=== PATIENT | male | born 1975 | race Caucasian/White ===

== ENCOUNTER 2017-08-29 08:00 | Outpatient (CLI) | payer MEDICAID ==
[2017-08-29 12:56] LABS: BASOPHILS % (AUTO) 0.3 %; EOSINOPHILS # (AUTO) 0.8 10^3/uL (0.0-0.7); HCT - HEMATOCRIT 45.8 % (42.0-52.0); HGB - HEMOGLOBIN 15.6 g/dL (14.0-18.0); LYMPHOCYTES # (AUTO) 2.5 10^3/uL (1.5-3.5); LYMPHOCYTES % (AUTO) 29.5 %; MEAN CORPUSCULAR HEMOGLOBIN 30.7 pg (27.0-31.0); MEAN CORPUSCULAR HGB CONC 34.2 g/dL (32.0-36.0); MEAN CORPUSCULAR VOLUME 89.9 fL (80.0-94.0); MONOCYTES # (AUTO) 0.5 10^3/uL (0.0-1.0); MONOCYTES % (AUTO) 5.8 %; NEUTROPHILS # (AUTO) 4.8 10^3/uL (1.5-6.6); NEUTROPHILS % (AUTO) 55.4 %; RED CELL DISTRIBUTION WIDTH 13.8 % (12.0-15.0); UNCORRECTED WHITE BLOOD COUNT 8.6 x10^3/uL; WHITE BLOOD COUNT 8.6 x10^3/uL (4.8-10.8)
[2017-08-29 13:11] LABS: ALBUMIN/GLOBULIN RATIO 1.4 (1.0-2.2); BILIRUBIN,TOTAL 1.1 mg/dL (0.2-1.0); BUN - BLOOD UREA NITROGEN 9 mg/dL (6-20); CALCIUM 9.4 mg/dL (8.5-10.3); CARBON DIOXIDE - CO2 26 mmol/L (21-32); CHLORIDE 106 mmol/L (101-111); CHOL/HDL RATIO 3.4 (<5.0); CHOLESTEROL 168 mg/dL; CREATININE 0.7 mg/dL (0.6-1.2); GFR - MDRD 125 (>89); GLUCOSE 86 mg/dL (70-100); HDL CHOLESTEROL 49 mg/dL; LDL/HDL RATIO 2.1 (<3.6); POTASSIUM 4.5 mmol/L (3.5-5.0); SODIUM 138 mmol/L (135-145); TOTAL PROTEIN 7.5 g/dL (6.7-8.2); TRIGLYCERIDES 70 mg/dL; VLDL CHOLESTEROL 14 mg/dL
== END 2017-08-29 08:01 | disposition home or self-care (01) ==
LOC: LAB.N 08:00
PROVIDERS: ATTEND Physician Assistant Medical
DX: Z82.49 Family history of ischemic heart disease and other diseases of the circulatory system (principal); Z81.1 Family history of alcohol abuse and dependence; Z83.3 Family history of diabetes mellitus; J30.2 Other seasonal allergic rhinitis
CPT/HCPCS: 36415; 80053; 80061; 85025

== ENCOUNTER 2018-10-14 05:14 | Emergency (ER) | payer MEDICAID ==
--- NOTE | 2018-10-14 05:49 | ED Physician Documentation ---
PD HPI DYSPNEA - Stated complaint Stated Complaint: SHORTNESS OF BREATH - Chief complaint Chief Complaint: Resp - History obtained from History obtained from: Patient - History of Present Illness Timing - onset: How many days ago (2) Timing - details: Gradual onset Pain level now: 0 Associated symptoms: Cough. No: Fever, Chest pain / discomfort Recently seen: Not recently seen - Additional information Additional information: c/o 2 days of sinus congestion, cough, wheezing, generalized headache, dyspnea Review of Systems Constitutional: reports: Reviewed and negative Ears: reports: Ear pain Nose: reports: Rhinorrhea / runny nose, Congestion, Sinus pressure / pain Throat: reports: Sore throat Cardiac: reports: Reviewed and negative Respiratory: reports: Dyspnea, Cough, Wheezing PD PAST MEDICAL HISTORY - Past Medical History Past Medical History: Yes Respiratory: Asthma - Past Surgical History Past Surgical History: Yes HEENT: Tonsil/Adenoidectomy - Present Medications Home Medications: Ambulatory Orders Medication Instructions Recorded Confirmed Albuterol Sulfate [Ventolin Hfa] 2 puffs IH QID PRN #1 hfa.aer.ad 06/06/16 10/14/18 Amox/Clav 875/125 [Augmentin] 1 each PO Q12H #13 tablet 10/14/18 predniSONE [Prednisone] 40 mg PO DAILY 3 Days #6 tablet 10/14/18 - Allergies Allergies/Adverse Reactions: Allergies Allergy/AdvReac Type Severity Reaction Status Date / Time iodine Allergy Rash Verified 10/14/18 05:23 - Social History Does the pt smoke?: Yes Smoking Status: Current every day smoker Does the pt drink ETOH?: Yes Does the pt have substance abuse?: Yes - Immunizations Immunizations are current?: Yes - POLST Patient has POLST: No PD ED PE NORMAL - Vitals Vital signs reviewed: Yes - General General: Alert and oriented X 3, No acute distress, Well developed/nourished - HEENT HEENT: Pharynx benign, Other (right TM central erythema) - Neck Neck: Supple, no meningeal sign - Respiratory Respiratory: No respiratory distress, Clear bilaterally Results - Vitals Vitals: Vital Signs - 24 hr 10/14/18 10/14/18 10/14/18 05:21 05:47 06:15 Temperature 37.4 C Heart Rate 86 77 77 Respiratory 18 15 16 Rate Blood Pressure 119/71 117/78 111/74 O2 Saturation 98 97 97 10/14/18 06:36 Temperature 36.5 C Heart Rate 83 Respiratory 16 Rate Blood Pressure 108/74 O2 Saturation 98 Oxygen O2 Source Room air PD MEDICAL DECISION MAKING - ED course Complexity details: considered differential, d/w patient Departure - Departure Disposition: 01 Home, Self Care Clinical Impression: Sinusitis, Otitis media, Asthma Condition: Good Instructions: ED Reactive Airway Disease, ED Otitis Media Acute Adult, ED Sinusitis Abx Tx Follow-Up: Matteo Chaparro PA-C [Primary Care Provider] - (3-5 days if not improving) Prescriptions: Amox/Clav 875/125 [Augmentin] 1 each PO Q12H #13 tablet predniSONE [Prednisone] 40 mg PO DAILY 3 Days #6 tablet Forms: Activity restrictions Discharge Date/Time: 10/14/18 06:39
[2018-10-14] MEDS ORDERED: predniSONE 20 MG TABLET PO STA (06:30)
[2018-10-14] MEDS ORDERED: AMOX/CLAV 875 MG/125 MG TABLET PO STA (06:30)
[2018-10-14 06:38] VITALS: BP 108/74
== END 2018-10-14 06:39 | disposition home or self-care (01) ==
LOC: ED 05:14
DX: J32.9 Chronic sinusitis, unspecified (principal); H66.90 Otitis media, unspecified, unspecified ear; J45.909 Unspecified asthma, uncomplicated; F17.200 Nicotine dependence, unspecified, uncomplicated
CPT/HCPCS: 99283; A9270; J7512

== ENCOUNTER 2020-12-03 05:21 | Emergency (ER) | payer MEDICAID ==
[2020-12-03] MEDS ORDERED: NEOMYCIN/POLYMYX/HC OTIC DROPS LEFTEAR STA (05:51)
--- NOTE | 2020-12-03 05:54 | ED Physician Documentation ---
PD HPI HEENT - Stated complaint Stated Complaint: R EAR PX - Chief complaint Chief Complaint: Heent - History obtained from History obtained from: Patient - History of Present Illness Timing - onset: How many days ago (2) Timing - duration: Days (2) Timing - details: Gradual onset, Still present Location: Left ear Improves: Medication Associated symptoms: No: Fever, Congestion, Rhinorrhea, Trismus, Unable to swallow, Swollen nodes, Facial swelling, Headache, Cough Similar symptoms before: Diagnosis (OM) Recently seen: Not recently seen - Additional information Additional information: 45-year-old male reports that over the past 2 days he has developed some pain in his right ear again and he went to put a Q-tip in it this evening and got pus and blood. He has come now to the emergency department with pain to the right ear is painful to to the touch and he has not had fever and he has not had a change in his usual smoker's cough. He denies any sore throat or nasal congestion. He indicates that since this infection that he had 1 year ago he has had 4 other times where he has had pain in his ear and this is resolved spontaneously over period of time. Review of Systems Constitutional: denies: Fever Eyes: denies: Decreased vision Ears: reports: Loss of hearing, Ear pain, Drainage/discharge Nose: denies: Rhinorrhea / runny nose, Congestion Throat: denies: Sore throat Cardiac: denies: Chest pain / pressure, Palpitations Respiratory: denies: Dyspnea, Cough GI: denies: Abdominal Pain, Nausea, Vomiting : denies: Dysuria PD PAST MEDICAL HISTORY - Past Medical History Past Medical History: Yes Cardiovascular: None Respiratory: Asthma Neuro: None Endocrine/Autoimmune: None GI: None : None HEENT: None Psych: None Musculoskeletal: None Derm: None - Past Surgical History Past Surgical History: Yes HEENT: Tonsil/Adenoidectomy - Present Medications Home Medications: Ambulatory Orders Medication Instructions Recorded Confirmed Albuterol Sulfate [Ventolin Hfa] 2 puffs IH QID PRN #1 hfa.aer.ad 06/06/16 12/03/20 Neomycin/Polymyx/Hc Otic Drops 4 drops LEFTEAR BID #10 ml 12/03/20 [Cortisporin Ear Susp] - Allergies Allergies/Adverse Reactions: Allergies Allergy/AdvReac Type Severity Reaction Status Date / Time iodine Allergy Rash Verified 10/14/18 05:23 - Social History Does the pt smoke?: Yes Smoking Status: Current every day smoker Does the pt drink ETOH?: Yes Does the pt have substance abuse?: Yes - Immunizations Immunizations are current?: Yes - POLST Patient has POLST: No PD ED PE NORMAL - Vitals Vital signs reviewed: Yes (Normal) - General General: Alert and oriented X 3, No acute distress - HEENT HEENT: Atraumatic, PERRL, EOMI, Other (The right ear is tender to push on the pinna and to pull on the tragus. There is erythema to the canal especially to the inferior portion of the canal along with some swelling. There is debris in the canal. The TM is erythematous centrally. The left TM is minimally erythematous in that attic. 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, No motor deficit, No sensory deficit, Normal speech Eye Opening: Spontaneous Motor: Obeys Commands Verbal: Oriented GCS Score: 15 - Psych Psych: Normal mood, Normal affect Results - Vitals Vitals: Vital Signs - 24 hr 12/03/20 12/03/20 05:33 05:40 Temperature 36.9 C 36.9 C Heart Rate 63 63 Respiratory 16 16 Rate Blood Pressure 118/69 118/69 O2 Saturation 97 97 Oxygen O2 Source Room air PD MEDICAL DECISION MAKING - ED course Complexity details: reviewed old records, considered differential, d/w patient ED course: 45-year-old male presents today with ear pain and appears to have otitis externa on exam. He does have some evidence of otitis media but has had prior episodes where this is resolved spontaneously and this is not treated today. He is administered Cortisporin otic drops. We will treat him for otitis externa. Departure - Departure Disposition: 01 Home, Self Care Clinical Impression: Otitis externa Qualifiers: Otitis externa type: unspecified type Chronicity: acute Laterality: right Quali fied Code(s): H60.501 - Unspecified acute noninfective otitis externa, right ear Condition: Stable Instructions: ED Otitis Externa Follow-Up: Ed[facility] [Provider Group] Prescriptions: Neomycin/Polymyx/Hc Otic Drops [Cortisporin Ear Susp] 4 drops LEFTEAR BID #10 ml
[2020-12-03 06:01] VITALS: BP 119/66
== END 2020-12-03 05:59 | disposition home or self-care (01) ==
LOC: ED 05:21
DX: H60.501 Unspecified acute noninfective otitis externa, right ear (principal); F17.200 Nicotine dependence, unspecified, uncomplicated
CPT/HCPCS: 99282; 99284; A9270

== ENCOUNTER 2021-08-26 00:19 | Emergency (ER) | payer MEDICAID ==
--- NOTE | 2021-08-26 00:45 | ED Physician Documentation ---
PD HPI HEENT - Stated complaint Stated Complaint: R EAR ACHE - Chief complaint Chief Complaint: Heent - History obtained from History obtained from: Patient - History of Present Illness Timing - onset: How many weeks ago (1) Timing - details: Gradual onset, Constant, Waxing and waning Pain level now: 8 Location: Right ear Improves: Nothing Associated symptoms: No: Fever - Additional information Additional information: c/o one week of right ear pain. Denies trauma. For the past 1-2 days, he has been using ear drops left over from a previous ear infection without improvement Review of Systems Constitutional: denies: Fever Ears: reports: Ear pain, Drainage/discharge PD PAST MEDICAL HISTORY - Past Medical History Past Medical History: Yes Cardiovascular: None Respiratory: Asthma Neuro: None Endocrine/Autoimmune: None GI: None : None HEENT: Other Psych: None Musculoskeletal: None Derm: None Other Past Medical History: chronic ear infections - Past Surgical History Past Surgical History: Yes HEENT: Tonsil/Adenoidectomy - Present Medications Home Medications: Ambulatory Orders Medication Instructions Recorded Confirmed Albuterol Sulfate [Ventolin Hfa] 2 puffs IH QID PRN #1 hfa.aer.ad 06/06/16 08/26/21 Neomycin/Polymyx/Hc Otic Drops 4 drops LEFTEAR BID #10 ml 12/03/20 08/26/21 [Cortisporin Ear Susp] - Allergies Allergies/Adverse Reactions: Allergies Allergy/AdvReac Type Severity Reaction Status Date / Time iodine Allergy Rash Verified 08/26/21 00:28 - Social History Does the pt smoke?: Yes Smoking Status: Current every day smoker Does the pt drink ETOH?: Yes Does the pt have substance abuse?: Yes - Immunizations Immunizations are current?: Yes - POLST Patient has POLST: No PD ED PE NORMAL - Vitals Vital signs reviewed: Yes - General General: Alert and oriented X 3, No acute distress, Well developed/nourished - HEENT HEENT: Moist mucous membranes - Neck Neck: Supple, no meningeal sign PD ED PE EXPANDED - HEENT HEENT: Other (normal left ear. right ear: external canal with mild erythema but severe swelling of soft tissue of external canal that completely occludes the canal . there is scant purulent d/c from the right external auditory canal) Results - Vitals Vitals: Vital Signs - 24 hr 08/26/21 02:02 Temperature 36.8 C Heart Rate 66 Respiratory 17 Rate Blood Pressure 115/71 O2 Saturation 97 Oxygen O2 Source Room air PD MEDICAL DECISION MAKING - ED course Complexity details: considered differential, d/w patient ED course: right external otitis with severe swelling the occludes the canal. A [place] ear wi ck is placed and ciprodex drops instilled with remainder of bottle given to go Departure - Departure Disposition: 01 Home, Self Care Clinical Impression: Otitis externa Condition: Good Instructions: ED Otitis Externa Follow-Up: BECKI FRANKLIN ARNP [Physician No Access] - (3-5 days) Comments: Use the antibiotic drops as follows (cipro/dex): 3-4 drops in right ear twice per day for ten days Forms: Activity restrictions Discharge Date/Time: 08/26/21 02:02
[2021-08-26] MEDS ORDERED: CIPROFLOX/DEXAMETH OTIC DROPS RIGHTEAR STA (01:48)
[2021-08-26 02:04] VITALS: BP 115/71
== END 2021-08-26 02:02 | disposition home or self-care (01) ==
LOC: ED 00:19
DX: H60.91 Unspecified otitis externa, right ear (principal); F17.200 Nicotine dependence, unspecified, uncomplicated
CPT/HCPCS: 99282; 99283; A9270; 87070; 87181; 87205

== ENCOUNTER 2021-08-26 08:00 | Outpatient (CLI) | payer MEDICAID | END 2021-08-26 23:59 | disposition home or self-care (01) | LOC: LAB.N 08:00 | PROVIDERS: ATTEND Nurse Practitioner | DX: H60.90 Unspecified otitis externa, unspecified ear (principal) | CPT/HCPCS: 87070; 87181; 87205 ==

== ENCOUNTER 2022-04-12 11:07 | Outpatient (CLI) | payer MEDICAID ==
--- NOTE | 2022-04-12 14:46 | Ultrasound Report ---
PROCEDURE: Pelvic Limited or F/U INDICATIONS: RIGHT INGUINAL HERNIA TECHNIQUE: Real-time transabdominal scanning was performed of the pelvic organs, with image documentation. COMPARISON: None. FINDINGS: There is a reducible fat-containing right femoral hernia which measures approximately 0.8-1 cm in diameter the neck. IMPRESSION: Reducible fat-containing right femoral hernia Reviewed by: Saadia Barksdale MD on 04/12/2022 2:44 PM PDT Approved by: Saadia Barksdale MD on 04/12/2022 2:44 PM PDT Station ID: [id number]
== END 2022-04-12 11:08 | disposition home or self-care (01) ==
LOC: DI 11:07
PROVIDERS: ATTEND Nurse Practitioner
DX: K41.90 Unilateral femoral hernia, without obstruction or gangrene, not specified as recurrent (principal)

== ENCOUNTER 2022-06-02 08:00 | Outpatient (CLI) | payer MEDICAID | END 2022-06-02 23:59 | disposition home or self-care (01) | LOC: LAB.N 08:00 | PROVIDERS: ATTEND Family Medicine | DX: L02.91 Cutaneous abscess, unspecified (principal) | CPT/HCPCS: 87070; 87181; 87205 ==

== ENCOUNTER 2022-06-20 08:44 | Day surgery (SDC) | payer MEDICAID ==
[2022-06-20] MEDS ORDERED: CELECOXIB 100 MG CAPSULE PO ONE (09:13)
[2022-06-20] MEDS ORDERED: ACETAMINOPHEN 500 MG TABLET PO ONE (09:13)
[2022-06-20] MEDS ORDERED: GABAPENTIN 400 MG CAPSULE ONE (09:13)
[2022-06-20] MEDS ORDERED: CEFAZOLIN 2G/50ML 0.9% NS 2 GM/50 ML BAG IV ONE (09:13)
[2022-06-20] MEDS ORDERED: LACTATED RINGERS 1,000 ML IV ONE ×2 (09:29→13:03)
--- NOTE | 2022-06-20 10:15 | ANESTHESIA ---
Pre-Anesthesia VS, & Labs - Diagnosis R inguinal hernia - Procedure R open inguinal hernia repair w mesh Vital Signs: Temp Pulse Resp BP Pulse Ox O2 Flow Rate 36.8 C 63 16 111/68 99 06/20/22 09:00 06/20/22 09:00 06/20/22 09:00 06/20/22 09:00 06/20/22 09:00 Height: 5 ft 6.75 in Weight (kg): 60.3 kg Body Mass Index: 20.9 BMI Classification: Normal - NPO Last Fluid Intake: black coffee 06 Last Food Intake: >8h - Lab Results Lab results reviewed: Yes Home Medications and Allergies Home Medications: Ambulatory Orders Albuterol 2.5 mg INH Q4H PRN 06/14/22 Ibuprofen [Motrin] 600 mg PO Q6H PRN 06/14/22 Albuterol 2.5 mg INH Q4H PRN 06/14/22 Ibuprofen [Motrin] 600 mg PO Q6H PRN 06/14/22 Allergies/Adverse Reactions: Allergies Allergy/AdvReac Type Severity Reaction Status Date / Time iodine Allergy Unknown Verified 06/14/22 11:39 Anes History & Medical History - Anesthetic History Anesthesia Complications: reports: No previous complications Family history of Anesthesia Complications: Denies Family history of Malignant Hyperthermia: Denies - Medical History Cardiovascular: reports: Arrhythmia Pulmonary: reports: Asthma Gastrointestinal: reports: None Urinary: reports: None Neuro: reports: None Musculoskeletal: reports: None Endocrine/Autoimmune: reports: None Blood Disorders: reports: None Skin: reports: Other Smoking Status: Current every day smoker Psychosocial: reports: Alcohol (social), Amphetamine (remote hx of heavy use, 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), Cannabis (daily) History of Cancer?: No - Surgical History Eyes Ears Nose Throat (EENT): reports: Tonsil/Adenoidectomy Exam General: Alert, Oriented x3, Cooperative Dental: WNL Mouth Openin Fingerbreadth Neck Mobility: Normal Mallampati classification: I Thyromental Distance: 4-6 cm Respiratory: Lungs clear, Normal breath sounds, No respiratory distress Cardiovascular: Regular rate Neurological: Normal speech Mental/Cognitive Status: Alert/Oriented X3, Normal for patient Cognitive Status: Within normal limits Plan Anesthesia Type: General Consent for Procedure(s) Verified and Reviewed: Yes Code Status: Attempt Resuscitation ASA classification: 2-Mild systemic disease Is this case an emergency?: No
[2022-06-20] MEDS ORDERED: fentaNYL 100 MCG/2 ML VIAL IVP PRN (10:16)
[2022-06-20] MEDS ORDERED: ePHEDrine 50 MG/ML VIAL IVP PRN (10:16)
[2022-06-20] MEDS ORDERED: ONDANSETRON 4 MG/2 ML VIAL IVP PRN ×2 (10:16→13:00)
[2022-06-20] MEDS ORDERED: ATROPINE ABBOJECT 1 MG/10 ML SYRINGE IVP PRN (10:16)
[2022-06-20] MEDS ORDERED: HYDROmorphone 0.5 MG/0.5 ML SYRINGE IVP PRN (10:16)
[2022-06-20] MEDS ORDERED: NALOXONE 0.4 MG/ML VIAL IVP PRN (10:16)
[2022-06-20] MEDS ORDERED: METOCLOPRAMIDE 10 MG/2 ML VIAL IVP PRN (10:16)
[2022-06-20] MEDS ORDERED: MORPHINE 2 MG/ML CARPUJECT IVP PRN (10:16)
[2022-06-20] MEDS ORDERED: LACTATED RINGERS 1,000 ML IV SCH (11:00)
[2022-06-20] MEDS ORDERED: LIDOCAINE MPF 2%-EPI 1:200000 20 ML VIAL ONE (11:05)
[2022-06-20] MEDS ORDERED: BUPIVACAINE 0.5% PF 30 ML VIAL ONE (11:05)
[2022-06-20] MEDS ORDERED: PROPOFOL 200 MG/20 ML VIAL IVP ONE (11:25)
[2022-06-20] MEDS ORDERED: MIDAZOLAM 2 MG/2 ML VIAL ONE (11:25)
[2022-06-20] MEDS ORDERED: fentaNYL 100 MCG/2 ML VIAL ONE (11:25)
[2022-06-20] MEDS ORDERED: LIDOCAINE-MPF 2% 5 ML VIAL ONE (11:25)
[2022-06-20] MEDS ORDERED: BUPIVACAINE 0.5% PF 30 ML VIAL INFIL ONE (12:25)
[2022-06-20] MEDS ORDERED: LIDOCAINE MPF 2%-EPI 1:200000 20 ML VIAL SUBQ ONE (12:26)
[2022-06-20] MEDS ORDERED: ONDANSETRON 4 MG/2 ML VIAL ONE (12:28)
[2022-06-20] MEDS ORDERED: ACETAMINOPHEN 325 MG TABLET PO PRN (13:00)
[2022-06-20] MEDS ORDERED: IBUPROFEN 600 MG TABLET PO PRN (13:00)
[2022-06-20] MEDS ORDERED: oxyCODONE 5 MG TABLET PO PRN (13:00)
--- NOTE | 2022-06-20 13:07 | OPERATIVE REPORT ---
Operative Report - General Procedure Date: 06/20/22 Planned Procedure: open inguinal hernia repair Pre-Op Diagnosis: right inguinal hernia Procedure Performed: open right inguinal hernia repair with mesh Post Op Diagnosis: right direct inguinal hernia - Procedure Note Primary Surgeon: Dr. Miryam Contreras Anesthesia Technique: General ET tube, Local, Regional block (R ilioinguinal nerve block) Estimated Blood Loss (mL): 5 Indications: The patient has had a right groin hernia for the last 1 year. It has been increasingly painful and now interferes with his activities of daily living. The patient was seen and evaluated in the clinic where we discussed the risks, benefits, and alternatives of open inguinal hernia repair with mesh. Risks include but are not limited to bleeding, infection, damage to surrounding structures, infection of the mesh requiring removal, chronic pain, and recurrence of the hernia. The patient voiced understanding, his questions were answered, and he wished to proceed with surgery. A consent was signed by the patient at that time. Findings: 1.direct inguinal hernia 2.PHSE prolene hernia system mesh used Complications: none - Other Other Information/Narrative: The patient was brought to the operative suite and placed in the supine position. General endotracheal anesthesia was induced. Preop antibiotics were given and ERAS protocol was followed. Patient was prepped and draped in the usual sterile fashion. A preop surgical timeout was performed. Next, local was used to perform an ilioinguinal nerve block. The incision was planned overlying the area of the hernia following the skin crease. An incision was made with a 15 blade scalpel and carried down through the skin and subcutaneous tissues to the level of the external abdominal oblique. Excellent hemostasis was maintained. Local was injected just deep to the external abdominal oblique and the external abdominal oblique muscle was opened using a 15 blade scalpel following the muscle fibers. The incision was enlarged using Metzenbaum scissors through the external inguinal ring and slightly laterally. Next the cord structures were isolated from the surrounding tissues and a [place] drain was passed around them. The hernia sac was identified and isolated from the surrounding tissues taking great care to avoid any cord structures. The patient was noted to have a direct inguinal hernia. Once the sac was completely isolated from the surrounding tissues it was reduced and the preperitoneal space was developed. A PHSE Prolene hernia system was brought onto the field and placed in the preperitoneal space the external component was opened. It was tacked medially and inferiorly to the pubic tubercle using a 2-0 PDS suture. A 2-0 PDS suture was also placed lateral to the mesh to narrow the direct hernia opening. The mesh was also tacked to the shelving edge inferiorly and laterally and to the shelving edge superiorly to allow it to lie flat. A slit was made to accommodate the cord structures and the external inguinal ring was re-created. Care was taken to ensure that there was adequate space to accommodate the cord structures and swelling postoperatively. The corners of the mesh were reapproximated to re-create this ring using 2-0 PDS. Additional local was injected into the tissues in the areas where the sutures were placed. Next, the external abdominal oblique muscle was reapproximated with 2-0 Vicryl in a running fashion. Then, Victor Hugo's fascia was reapproximated with 3-0 Vicryl in an interrupted fashion. The subcutaneous tissues were irrigated with warm normal saline. The deep dermal tissues were reapproximated with 3-0 Vicryl in an interrupted fashion. Finally, 4-0 Monocryl was used to reapproximate the skin edges in a running subcuticular fashion. A sterile dressing of skin glue was placed. The patient tolerated the procedure well. Both testicles were noted to be within the scrotum at the end of the case. There were no complications.
[2022-06-20] MEDS ORDERED: oxyCODONE 5 MG TABLET ONE (14:25)
[2022-06-20 14:45] VITALS: BP 119/72
== END 2022-06-20 08:45 | disposition home or self-care (01) ==
LOC: SDS 08:44
PROVIDERS: ATTEND Surgery
DX: K40.90 Unilateral inguinal hernia, without obstruction or gangrene, not specified as recurrent (principal); J45.909 Unspecified asthma, uncomplicated
CPT/HCPCS: 49505; A9270; C1713; J0690; J7120

== ENCOUNTER 2022-12-20 07:57 | Day surgery (SDC) | payer MEDICAID ==
[2022-12-20] MEDS ORDERED: LACTATED RINGERS 1,000 ML IV ONE ×2 (08:31→12:15)
[2022-12-20] MEDS ORDERED: PROPOFOL 500 MG/50 ML 500 MG/50 ML VIAL ONE (09:31)
--- NOTE | 2022-12-20 09:46 | ANESTHESIA ---
Pre-Anesthesia VS, & Labs - Diagnosis screening - Procedure colonoscopy Vital Signs: Temp Pulse Resp BP Pulse Ox O2 Flow Rate 36.6 C 62 19 138/82 H 94 12/20/22 08:18 12/20/22 08:18 12/20/22 08:18 12/20/22 08:18 12/20/22 08:18 Height: 5 ft 6 in Weight (kg): 57 kg Body Mass Index: 20.2 BMI Classification: Normal - NPO >8 hours Last Fluid Intake: am prep - Lab Results Lab results reviewed: Yes Home Medications and Allergies Albuterol 2.5 mg INH Q4H PRN 06/14/22 Allergies/Adverse Reactions: Allergies Allergy/AdvReac Type Severity Reaction Status Date / Time iodine Allergy Unknown Verified 06/14/22 11:39 Anes History & Medical History - Anesthetic History Anesthesia Complications: reports: No previous complications Family history of Anesthesia Complications: Denies Family history of Malignant Hyperthermia: Denies - Medical History Cardiovascular: reports: None Pulmonary: reports: Asthma (recent pollen has increased work of breathing per pt) Gastrointestinal: reports: None Urinary: reports: None Neuro: reports: None Musculoskeletal: reports: None Endocrine/Autoimmune: reports: None Blood Disorders: reports: None Skin: reports: None Smoking Status: Current every day smoker - Surgical History Eyes Ears Nose Throat (EENT): reports: Tonsil/Adenoidectomy Exam General: Alert, Oriented x3, Cooperative Dental: WNL Mouth Openin Fingerbreadth Neck Mobility: Normal Mallampati classification: II Thyromental Distance: 4-6 cm Respiratory: Lungs clear, Normal breath sounds, No respiratory distress Cardiovascular: Regular rate Neurological: Normal speech Mental/Cognitive Status: Alert/Oriented X3, Normal for patient Plan Anesthesia Type: Total IV Consent for Procedure(s) Verified and Reviewed: Yes Code Status: Attempt Resuscitation ASA classification: 2-Mild systemic disease Is this case an emergency?: No
[2022-12-20] MEDS ORDERED: MIDAZOLAM 2 MG/2 ML VIAL ONE (11:45)
[2022-12-20] MEDS ORDERED: SIMETHICONE 40 MG/0.6 ML 30 ML BOTTLE PO ONE (11:55)
[2022-12-20] MEDS ORDERED: GLYCOPYRROLATE 1 MG/5 ML VIAL ONE (11:57)
[2022-12-20] MEDS ORDERED: SIMETHICONE 40 MG/0.6 ML 30 ML BOTTLE ONE (11:57)
[2022-12-20 12:35] VITALS: BP 109/83
--- NOTE | 2022-12-20 13:30 | ANESTHESIA POST OP EVALUATION ---
Anesthesia Post Eval - Post Anesthesia Eval Vitals: Last Vital Signs Temp 36.2 C L 12/20/22 12:16 Pulse 131 H 12/20/22 12:34 Resp 23 12/20/22 12:34 BP 109/83 H 12/20/22 12:34 Pulse Ox 93 12/20/22 12:34 O2 Flow Rate CV Function Including HR & BP: Stable Pain Control: Satisfactory Nausea & Vomiting: Negative Mental Status: Baseline Respiratory Status: Airway Patent Hydration Status: Satisfactory Anesthesia Complications: None
== END 2022-12-20 07:58 | disposition home or self-care (01) ==
LOC: SDS 07:57
PROVIDERS: ATTEND Surgery
PROC: 0DBN8ZX Excision of Sigmoid Colon, Via Natural or Artificial Opening Endoscopic, Diagnostic (ICD-10-PCS; 2022-12-20)
PROC: 0DBP8ZX Excision of Rectum, Via Natural or Artificial Opening Endoscopic, Diagnostic (ICD-10-PCS; principal; 2022-12-20 09:30)
DX: Z12.11 Encounter for screening for malignant neoplasm of colon (principal); K63.5 Polyp of colon; K62.1 Rectal polyp; J45.909 Unspecified asthma, uncomplicated
CPT/HCPCS: 45380; 45385; A9270; J7120

== ENCOUNTER 2023-01-17 20:30 | Emergency (ER) | payer MEDICAID ==
[2023-01-17 20:53] VITALS: BP 144/78
--- NOTE | 2023-01-17 21:47 | XRAY Report ---
PROCEDURE: Chest 2 View X-Ray INDICATIONS: Cough TECHNIQUE: 2 views of the chest were acquired. COMPARISON: None. FINDINGS: Surgical changes and devices: None. Lungs and pleura: Subtle bilateral pulmonary infiltrates peripherally. Hyperinflation consistent wit h COPD. Bilateral pleural scarring is blunting of costophrenic angles. No pneumothorax. Mediastinum: Mediastinal contours appear normal. Heart size is normal. Bones and chest wall: No suspicious bony lesions. Overlying soft tissues appear unremarkable. IMPRESSION: 1. Subtle bilateral peripheral infiltrates suggesting atypical pneumonia. 2. COPD. Reviewed by: Aníbal Law MD on 01/17/2023 9:46 PM PDT Approved by: Aníbal Law MD on 01/17/2023 9:46 PM PDT Station ID: [id number]
[2023-01-17] MEDS ORDERED: BENZONATATE 100 MG CAPSULE PO STA (22:31)
[2023-01-17] MEDS ORDERED: predniSONE 20 MG TABLET PO STA (22:31)
[2023-01-17] MEDS ORDERED: AMOX/CLAV 875 MG/125 MG TABLET PO STA (22:31)
[2023-01-17] MEDS ORDERED: AZITHROMYCIN 250 MG TABLET PO STA (22:31)
--- NOTE | 2023-01-17 22:34 | ED Physician Documentation ---
PD HPI URI - Stated complaint Stated Complaint: SOA, COUGH, - Chief complaint Chief Complaint: Resp - History obtained from History obtained from: Patient - Additional information Additional information: 47-year-old heavy smoker has been sick for 2 weeks with cough productive of clear sputum, backache associated with coughing. Shortness of breath. He is not running fevers. PD PAST MEDICAL HISTORY - Past Medical History Cardiovascular: None Respiratory: Asthma (recent pollen has increased work of breathing per pt) Neuro: None Endocrine/Autoimmune: None GI: None : None HEENT: Other Psych: None Musculoskeletal: None Derm: None - Past Surgical History Past Surgical History: Yes HEENT: Tonsil/Adenoidectomy - Present Medications Home Medications: Ambulatory Orders Medication Instructions Recorded Confirmed Albuterol Sulfate [Ventolin Hfa] 2 puffs IH QID PRN #1 hfa.aer.ad 06/06/16 01/17/23 Albuterol 2.5 mg INH Q4H PRN 06/14/22 12/20/22 Amox/Clav 875/125 [Augmentin] 1 each PO Q12H #20 tablet 01/17/23 Azithromycin [Zithromax] 1 tab PO DAILY #4 tab 01/17/23 Benzonatate [Tessalon] 200 mg PO TID PRN #20 cap 01/17/23 Varenicline Tartrate 0.5 mg PO DAILY #11 tablet 01/17/23 Varenicline Tartrate 1 mg PO BID #154 tablet 01/17/23 - Allergies Allergies/Adverse Reactions: Allergies Allergy/AdvReac Type Severity Reaction Status Date / Time iodine Allergy Unknown Verified 01/17/23 20:53 - Social History Does the pt smoke?: Yes Smoking Status: Current every day smoker Does the pt drink ETOH?: Yes Does the pt have substance abuse?: Yes - Immunizations Immunizations are current?: Yes - POLST Patient has POLST: No PD ED PE NORMAL - Vitals Vital signs reviewed: Yes - General General: Alert and oriented X 3, No acute distress - Cardiac Cardiac: RRR, No murmur - Respiratory Respiratory: Other (Wheezy and rhonchorous throughout without focal findings, nonlabored) - Abdomen Abdomen: Non tender - Derm Derm: Normal color, Warm and dry - Neuro Neuro: Alert and oriented X 3, Normal speech Results - Vitals Vitals: Vital Signs - 24 hr 01/17/23 01/17/23 20:51 22:28 Temperature 36.7 C Heart Rate 85 Respiratory 21 16 Rate Blood Pressure 144/78 H O2 Saturation 96 Oxygen O2 Source Room air - Rads (name of study) Chest x-ray shows atypical pneumonia with superimposed COPD. Relevant Findings:: Final report received, EMP independent interpretation of test PD Medical Decision Making - ED course ED course: 47-year-old gentleman presents with COPD exacerbation and pneumonia. He did not know he had COPD that is present on his x-ray. He was counseled at length to quit smoking. He would like something medication dorsey to help. He has tried patches in the past without relief. After discussion of risks and benefits he would like to go ahead with Chantix. Departure - Departure Disposition: 01 Home, Self Care Clinical Impression: Tobacco abuse Pneumonia Qualifiers: Aspiration pneumonia type: unspecified Laterality: bilateral Lung location: unspecified part of lung COPD (chronic obstructive pulmonary disease) Qualifiers: COPD type: unspecified COPD Qualified Code(s): J44.9 - Chronic obstructive pulmonary disease, unspecified Condition: Good Record reviewed to determine appropriate education?: Yes Instructions: Pneumonia Dc Prescriptions: Amox/Clav 875/125 [Augmentin] 1 each PO Q12H #20 tablet Benzonatate [Tessalon] 200 mg PO TID PRN #20 cap PRN Reason: Cough Varenicline Tartrate 0.5 mg PO DAILY #11 tablet Varenicline Tartrate 1 mg PO BID #154 tablet Azithromycin [Zithromax] 1 tab PO DAILY #4 tab Comments: As discussed, your x-ray shows mild bilateral atypical pneumonia as well as findings consistent with COPD from your smoking. It is imperative to stop smoking. In addition to 2 antibiotics for the pneumonia, steroids for the COPD, and cough medicine I am prescribing Chantix. This was after our discussion that it does occasionally cause psychosis. Chantix is to be taken as follows: Days 1 to 3: 0.5 mg once daily. Days 4 to 7: 0.5 mg twice daily. Maintenance (day 8 and later): 1 mg twice daily Quit smoking on day 8 when you start the 1 mg dose. Call your doctor to arrange a follow-up appointment, make the next available appointment. In the interim, return anytime if worse or if new symptoms develop. I sent your prescriptions to [facility] in [place].
== END 2023-01-17 22:44 | disposition home or self-care (01) ==
LOC: ED 20:30
DX: J44.9 Chronic obstructive pulmonary disease, unspecified (principal); F17.200 Nicotine dependence, unspecified, uncomplicated; J18.9 Pneumonia, unspecified organism
CPT/HCPCS: 71046; 99284; A9270; J7512